=== PATIENT | male | born 1960 | race Hispanic/Latino ===

== ENCOUNTER → 2022-04-05 | Outpatient (CLI) | payer BC ==
[~2022-04-05] VITALS: Ht 167.6 cm; Wt 93.4 kg
[~2022-04-05] MED LIST: REGADENOSON 0.4 MG/5 ML PF SYG IVP SCH
== END | disposition home or self-care (01) ==
LOC: SHCH 10:43
PROVIDERS: ATTEND Internal Medicine Cardiovascular Disease
DX: R07.9 Chest pain, unspecified (principal)
CPT/HCPCS: 93306

== ENCOUNTER → 2024-01-11 | Outpatient (CLI) | payer BC ==
[~2024-01-11] MED LIST changes: +ASPI-1443 PO; +ATOR40TA69 PO; +ESOM40CA PO; +FURO20TA4 PO; +METO25 PO; -REGADENOSON 0.4 MG/5 ML PF SYG IVP SCH
[2024-01-11 12:33] LABS: CHOLESTEROL 249 mg/dL (<200); CREATINE KINASE, TOTAL 96 U/L (21-232); HDL CHOLESTEROL 52 mg/dL (29-71); LDL DIRECT 155 mg/dL (0-99); TRIGLYCERIDES 243 mg/dL (30-200)
== END | disposition home or self-care (01) ==
LOC: LAB 11:26
PROVIDERS: ATTEND Physician Assistant
DX: E78.5 Hyperlipidemia, unspecified (principal)
CPT/HCPCS: 36415; 80061; 82550